=== PATIENT | male | born 1940 | race Caucasian/White ===

== ENCOUNTER 2016-09-17 22:45 | Emergency (ER) | payer MEDICARE ==
[2016-09-17 23:38] LABS: ABSOLUTE EOSINOPHILS # (AUTO) 0.2 10^3/uL (0.0-0.6); ABSOLUTE LYMPHOCYTES (AUTO) 1.7 10^3/uL (0.5-4.7); ABSOLUTE MONOCYTES (AUTO) 0.8 10^3/uL (0.1-1.4); ABSOLUTE NEUT (AUTO) 6.2 10^3/uL (1.7-8.2); BASOPHILS % (AUTO) 0.2 % (0-2); EOSINOPHILS % (AUTO) 2.2 % (0-6); HEMATOCRIT 30.5 % (37.9-51.0); HEMOGLOBIN 10.4 g/dL (13.5-17.0); HGB HCT DIFFERENCE 0.7; LYMPHOCYTES % (AUTO) 18.9 % (13-45); MEAN CORPUSCULAR HEMOGLOBIN 31.1 pg (27.0-33.4); MEAN CORPUSCULAR VOLUME 91 fl (80-97); MONOCYTES % (AUTO) 9.3 % (3-13); RED BLOOD COUNT 3.34 10^6/uL (4.35-5.55); RED CELL DISTRIBUTION WIDTH 12.8 % (11.5-14.0); SEGMENTED NEUTROPHILS % (AUTO) 69.4 % (42-78); WHITE BLOOD COUNT 8.9 10^3/uL (4.0-10.5)
[2016-09-17 23:43] LABS: APPEARANCE,URINE CLEAR; BILIRUBIN,URINE NEGATIVE (NEGATIVE); GLUCOSE, URINE >=500 mg/dL (NEGATIVE); KETONES,URINE NEGATIVE (NEGATIVE); LEUKOCYTE ESTERASE,URINE NEGATIVE (NEGATIVE); NITRITE,URINE NEGATIVE (NEGATIVE); PROTEIN,URINE 100 mg/dL (NEGATIVE); URINE SPECIFIC GRAVITY 1.017; UROBILINOGEN,URINE NEGATIVE mg/dL (<2.0)
[2016-09-17 23:49] LABS: ALANINE AMINOTRANSFERASE 32 U/L (21-72); ALBUMIN 3.2 g/dL (3.5-5.0); ALKALINE PHOSPHATASE 89 U/L (38-126); ANION GAP 8 (5-19); ASPARTATE AMINO TRANSFERASE 23 U/L (17-59); BILIRUBIN,DIRECT 0.3 mg/dL (0.0-0.4); BILIRUBIN,TOTAL 0.5 mg/dL (0.2-1.3); BLOOD UREA NITROGEN 25 mg/dL (7-20); CALCIUM 8.8 mg/dL (8.4-10.2); CARBON DIOXIDE 26 mmol/L (22-30); CHLORIDE 91 mmol/L (98-107); CREATININE RESULT 1.36 mg/dL (0.52-1.25); POTASSIUM 5.1 mmol/L (3.6-5.0); SODIUM 125.4 mmol/L (137-145); TOTAL PROTEIN 6.2 g/dL (6.3-8.2)
[2016-09-17] MEDS ORDERED: NORMAL SALINE 1000 ML 1,000 ML IV ONE (23:53)
--- NOTE | 2016-09-17 23:54 | ER Document Report ---
ED General - General Chief Complaint: High Blood Sugar Stated Complaint: BLOOD PRESSURE PROBLEMS Time Seen by Provider: 09/17/16 23:49 Notes: Patient is a 76-year-old male that comes emergency department for chief complaint of high blood glucose. Initial Accu-Chek by EMS reading as high. Patient comes from intermediate care facility [facility]. Patient states he has not had any insulin tonight. Patient states he is thirsty but he denies any other symptoms including chest pain, dizziness, nausea, vomiting, abdominal pain. Patient states he just wants to go home. TRAVEL OUTSIDE OF THE [place] IN LAST 30 DAYS: No - Related Data Allergies/Adverse Reactions: No Known Allergies Allergy (Verified 01/16/16 09:22) Past Medical History - General Information source: Patient - Social History Smoking Status: Never Smoker Frequency of alcohol use: None Drug Abuse: None Lives with: Family Family History: Reviewed & Not Pertinent - Past Medical History Cardiac Medical History: Reports: Hx Coronary Artery Disease, Hx Hypercholesterolemia, Hx Hypertension Denies: Hx Heart Attack Pulmonary Medical History: Reports: Hx COPD Denies: Hx Asthma Neurological Medical History: Denies: Hx Cerebrovascular Accident - NOTHING IN CHART, Hx Seizures - ENCAPHALOPATHY Endocrine Medical History: Reports: Hx Diabetes Mellitus Type 2 GI Medical History: Reports: Hx Gastroesophageal Reflux Disease. Denies: Hx Hepatitis, Hx Hiatal Hernia, Hx Ulcer Musculoskeltal Medical History: Reports Hx Arthritis Psychiatric Medical History: Reports: Hx Dementia - ETOH dementia, Hx Schizophrenia Infectious Medical History: Denies: Hx Hepatitis Past Surgical History: Reports: Hx Cardiac Surgery - cabg, Hx Coronary Artery Bypass Graft - Patient does not recall when or how many vessels were done., Hx Orthopedic Surgery - Right hip fx nailed. Denies: Hx Open Heart Surgery, Hx Pacemaker - Immunizations Hx Diphtheria, Pertussis, Tetanus Vaccination: - unknown Hx Pneumococcal Vaccination: 10/13/12 Review of Systems - Review of Systems Constitutional: See HPI EENT: No symptoms reported Cardiovascular: No symptoms reported Respiratory: No symptoms reported Gastrointestinal: No symptoms reported Genitourinary: No symptoms reported Male Genitourinary: No symptoms reported Musculoskeletal: No symptoms reported Skin: No symptoms reported Hematologic/Lymphatic: No symptoms reported Neurological/Psychological: No symptoms reported Physical Exam - Vital signs Interpretation: Normal - General General appearance: Appears well, Alert In distress: None - HEENT Head: Normocephalic, Atraumatic Eyes: Normal Pupils: PERRL - Respiratory Respiratory status: No respiratory distress Chest status: Nontender Breath sounds: Normal Chest palpation: Normal - Cardiovascular Rhythm: Regular. No: Tachycardia Heart sounds: Normal auscultation, S1 appreciated, S2 appreciated - Abdominal Inspection: Normal Distension: No distension Bowel sounds: Normal Tenderness: Nontender. No: Tender, Guarding Organomegaly: No organomegaly - Back Back: Normal, Nontender - Extremities General upper extremity: Normal inspection, Nontender, Normal color, Normal ROM , Normal temperature General lower extremity: Normal inspection, Nontender, Normal color, Normal ROM , Normal temperature, Normal weight bearing. No: Mauri's sign - Neurological Neuro grossly intact: Yes Cognition: Normal Orientation: AAOx4 Kathleen Coma Scale Eye Opening: Spontaneous [place] Coma Scale Verbal: Oriented [place] Coma Scale Motor: Obeys Commands Kathleen Coma Scale Total: 15 Speech: Normal Motor strength normal: LUE, RUE, LLE, RLE Sensory: Normal - Psychological Associated symptoms: Normal affect, Normal mood - Skin Skin Temperature: Warm Skin Moisture: Dry Skin Color: Normal Course - Re-evaluation Re-evalutation: Patient with no complaints other than being thirsty and wanting to go out and smoke. He was not allowed to go out and smoke. CBC unremarkable with chronic appearing anemia, no leukocytosis, no fever. No tachycardia, no hypotension. Hyperglycemia noted, bicarbonate and anion gap normal, no ketones in the urine. Treated with insulin, fluids. Hyponatremia noted, also has had hyponatremia in the past, patient given normal saline, recommendation was given for follow-up and close recheck, return precautions given. Patient will be discharged back to facility. - Laboratory Result Diagrams: 09/17/16 23:06 09/17/16 23:06 Laboratory results interpreted by me: 09/17/16 09/17/16 09/17/16 23:06 23:06 23:30 RBC 3.34 L Hgb 10.4 L Hct 30.5 L Sodium 125.4 L Potassium 5.1 H Chloride 91 L BUN 25 H Creatinine 1.36 H Est GFR (Non-Af Amer) 51 L Glucose 514 H* POC Glucose Total Protein 6.2 L Albumin 3.2 L Urine Protein 100 H Urine Glucose (UA) >=500 H 05/24/17 05/24/17 01:43 02:57 RBC Hgb Hct Sodium Potassium Chloride BUN Creatinine Est GFR (Non-Af Amer) Glucose POC Glucose 285 H 239 H Total Protein Albumin Urine Protein Urine Glucose (UA) Discharge - Discharge Clinical Impression: Hyperglycemia, Hyponatremia Condition: Stable Disposition: HOME, SELF-CARE Additional Instructions: He has been treated for hypoglycemia and hyponatremia. Please perform repeat chemistry in 2-3 days. Give insulin as prescribed return to emergency department for any concerning or worsening symptoms including, vomiting, fever, etc.
[2016-09-18] LABS: GLUCOSE 514 mg/dL (75-110)
[2016-09-18] MEDS ORDERED: INSULIN REG, HUMAN 100 UNIT/ML 3 ML VIAL (PYX) SUBCUT ONE (00:06)
[2016-09-18] MEDS ORDERED: ACETAMINOPHEN 325 MG TABLET PO ONE (00:33)
[2016-09-18] MEDS ORDERED: ONDANSETRON HCL INJ/PF 4 MG/2 ML SDV IV ONE (00:34)
== END 2016-09-18 04:51 | disposition home or self-care (01) ==
LOC: ER 22:45
DX: E11.65 Type 2 diabetes mellitus with hyperglycemia (principal); E87.1 Hypo-osmolality and hyponatremia; D64.9 Anemia, unspecified; I25.10 Atherosclerotic heart disease of native coronary artery without angina pectoris; Z95.1 Presence of aortocoronary bypass graft
CPT/HCPCS: 99285; 96361; 96374; 36415; 82962; 85025; 80053; 81001; A9270 ×2; J2405; J7030; J1815